=== PATIENT | female | born 1975 | race Two or more races ===

== ENCOUNTER 2016-07-31 23:10 | Emergency (ER) | payer MEDICAID ==
[~2016-07-31] VITALS: Ht 160 cm; Wt 134.7 kg
[~2016-07-31 23:10] MED LIST: ACET-929 PO; ALBU1.257 IN; BENZ1CAP24 PO; CHOL100029 PO; GAB400C PO; HYDR-2551 PO; MONT10TA34 PO; OMEP20CA5 PO; THEO80SO PO
[2016-07-31] MEDS: IPRATROPIUM BROM 0.5 MG/2.5ML INH SOL NEB ONE (23:43)
[2016-07-31] MEDS: ALBUTEROL SULF 2.5 MG/0.5ML(0.5%) NEB SOLN NEB ONE (23:43)
[2016-07-31 23:49] LABS: Basophils # (auto) 0 uL; Basophils % (auto) 0.3 % (0.0-2.0); DEFINITIVE VIEW TRANSMISSION; Eosinophils # (auto) 2.2 uL; Eosinophils % (auto) 13.9 % (0.0-7.0); Hematocrit 41.9 % (36.0-46.0); Hemoglobin 13.2 g/dL (12.2-16.2); Lymphocytes # (auto) 4.8 uL; Lymphocytes % (auto) 29.8 % (10.0-50.0); Mean Corpuscular Hgb Conc. 31.6 g/dL (32.0-36.0); Mean Corpuscular Volume 88.5 fL (80.0-100.0); Mean Platelet Volume 8.8 fL (7.4-10.4); Monocytes # (auto) 0.8 uL; Monocytes % (auto) 5.3 % (0.0-12.0); Neutrophils # (auto) 8.1 uL; Neutrophils % (auto) 50.7 % (37.0-80.0); Platelet Count (auto) 331 10^3/uL (140-450); Red Cell Distribution Width 13.9 % (11.6-16.0); White Blood Cell 16.1 10^3/uL (4.4-10.8)
[2016-07-31 23:56] LABS: Albumin 3.8 g/dL (3.4-5.0); BUN/Creatinine Ratio 15.5
[2016-07-31 23:59] LABS: Bilirubin, Total 0.4 mg/dL (0.2-1.0); Total Protein 7.7 g/dL (6.4-8.2)
[2016-08-01 00:05] LABS: Potassium 2.9 mmol/L (3.5-5.1)
[2016-08-01] MEDS: POTASSIUM CHL 20 Meq TABLET PO ONE (00:28)
[2016-08-01] MEDS: ALBUTEROL SULF 2.5 MG/0.5ML(0.5%) NEB SOLN NEB ONE (02:47)
[2016-08-01] MEDS: LEVOFLOXACIN 250 MG TAB PO ONE (02:47)
[2016-08-01] MEDS: methylPREDNISolone SOD SUCC 125 MG/2 ML VL IV ONE (03:01)
[2016-08-01] MEDS: SODIUM CHLORIDE 0.9% 1,000 ML IV ONE (03:49)
[2016-08-01 04:01] VITALS: BP 137/69
== END 2016-08-01 06:00 | disposition home or self-care (01) ==
LOC: ER 23:12
DX: J45.901 Unspecified asthma with (acute) exacerbation (principal); J20.9 Acute bronchitis, unspecified; D72.829 Elevated white blood cell count, unspecified; I10 Essential (primary) hypertension
CPT/HCPCS: 36415; 71010; 80053; 85025; 93005; 94640; 96361; 96374; 99285; J2930; J7030